=== PATIENT | female | born 1985 | race Two or more races ===

== ENCOUNTER 2020-05-27 11:05 | Inpatient (IN) | payer OTHER ==
[~2020-05-27] VITALS: Ht 165.1 cm; Wt 68.0 kg
[~2020-05-27 11:05] MED LIST: Colace 100MG PO; DERMOPLAST TP; DURICEF 500 MG CAPSULE PO; Hematron LIQ. PO; Motrin PO; PROCTOFOAM-HC 110 GM RC
[2020-06-20] MEDS ORDERED: FAMOTIDINE20 MG (11:25)
[2020-06-20] MEDS ORDERED: IBU400 MG PO (11:27)
[2020-06-20] MEDS ORDERED: DERMOPLAST FIRS78 GM (11:27)
[2020-06-20] MEDS ORDERED: COLACE100 MG PO (11:28)
[2020-06-20] MEDS ORDERED: DUI500 PO (11:35)
== END 2020-06-21 11:55 | DRG 807 ==
LOC: LDR 06-19 06:38 → OB/GYN 06-19 06:38 → LDR 06-19 15:31 → OB/GYN 06-19 19:29 → SURG-SUITE 06-20 10:53 → OB/GYN 06-24 11:30
PROVIDERS: ADMIT Obstetrics & Gynecology; ATTEND Obstetrics & Gynecology
PROC: 10E0XZZ Delivery of Products of Conception, External Approach (ICD-10-PCS; principal; 2020-06-19)
PROC: 0KQM0ZZ Repair Perineum Muscle, Open Approach (ICD-10-PCS; 2020-06-19)
PROC: 4A0HXFZ Measurement of Products of Conception, Cardiac Rhythm, External Approach (ICD-10-PCS; 2020-06-19)
DX: O70.1 Second degree perineal laceration during delivery (principal); Z37.0 Single live birth; Z3A.39 39 weeks gestation of pregnancy; Z20.828 Contact with and (suspected) exposure to other viral communicable diseases

== ENCOUNTER 2020-06-10 10:39 | Outpatient (CLI) | payer OTHER | END 2020-06-10 11:08 | disposition home or self-care (01) | LOC: NST 10:39 | PROVIDERS: ATTEND Obstetrics & Gynecology | DX: Z34.83 Encounter for supervision of other normal pregnancy, third trimester (principal) ==

== ENCOUNTER 2021-02-10 11:45 | Outpatient (CLI) | payer OTHER ==
[~2021-02-10 11:45] MED LIST changes: +COLACE100 MG PO; +DERMOPLAST FIRS78 GM; +DUI500 PO; +FAMOTIDINE20 MG; +IBU400 MG PO
== END 2021-02-10 11:50 | disposition home or self-care (01) ==
LOC: SONOGRAMA 11:45
PROVIDERS: ATTEND Pathology Anatomic Pathology & Clinical Pathology
DX: E04.2 Nontoxic multinodular goiter (principal)

== ENCOUNTER 2021-11-26 06:00 | Day surgery (SDC) | payer OTHER | END 2021-11-26 12:25 | disposition home or self-care (01) | LOC: CIR.AMB 06:00 | PROVIDERS: ATTEND Obstetrics & Gynecology Maternal & Fetal Medicine | DX: O02.1 Missed abortion (principal) ==

== ENCOUNTER 2023-03-04 08:23 | Outpatient (CLI) | payer OTHER | END 2023-03-04 08:29 | disposition home or self-care (01) | LOC: SONOGRAMA 08:23 | PROVIDERS: ATTEND Pathology Anatomic Pathology & Clinical Pathology | DX: D34 Benign neoplasm of thyroid gland (principal); E04.1 Nontoxic single thyroid nodule; E07.9 Disorder of thyroid, unspecified ==

== ENCOUNTER 2023-08-05 14:15 | Inpatient (IN) | payer OTHER ==
[~2023-08-05] VITALS: Ht 165.1 cm; Wt 70.8 kg
[2023-08-25] MEDS ORDERED: PRENATAL TABLE1 EAC1 PO (05:51)
[2023-08-25 07:09] LABS: HEMATOCRIT 34.7 % (36.0-45.00); HEMOGLOBIN 11.4 g/dL (12.0-15.00); MEAN CELL VOLUME 76.6 fL (80.00-100.00); MEAN CORPUSCULAR HEMOGLOBIN 25.1 pg (27.00-32.0); MEAN CORPUSCULAR HGB CONC 32.7 g/dl (32.0-36.0); PLATELET COUNT 159 K/uL (150-450); RED BLOOD COUNT 4.53 M/uL (4.00-6.00)
[2023-08-25 07:10] LABS: RED CELL DISTRIBUTION WIDTH 31.9 % (11.5-14.5)
[2023-08-25 07:25] LABS: INR < 0.93; PARTIAL THROMBOPLASTIN TIME 29.1 SECONDS (22.0-34.0); PROTHROMBIN TIME 9.5 SECONDS (9.0-11.5)
[2023-08-26 06:23] LABS: HEMATOCRIT 26.4 % (36.0-45.00); MEAN CELL VOLUME 78.1 fL (80.00-100.00); PLATELET COUNT 142 K/uL (150-450); RED BLOOD COUNT 3.38 M/uL (4.00-6.00)
[2023-08-26 06:37] LABS: MEAN CORPUSCULAR HEMOGLOBIN 25.7 pg (27.00-32.0)
[2023-08-26 06:38] LABS: HEMOGLOBIN 8.7 g/dL (12.0-15.00)
== END 2023-08-27 13:58 | disposition home or self-care (01) | DRG 807 ==
LOC: LDR 08-25 05:49 → OB/GYN 08-25 15:00
PROVIDERS: Obstetrics & Gynecology; Obstetrics & Gynecology Gynecology; ADMIT Obstetrics & Gynecology Maternal & Fetal Medicine; ATTEND Obstetrics & Gynecology Maternal & Fetal Medicine
PROC: 10E0XZZ Delivery of Products of Conception, External Approach (ICD-10-PCS; principal; 2023-08-25)
PROC: 0UQG7ZZ Repair Vagina, Via Natural or Artificial Opening (ICD-10-PCS; 2023-08-25)
PROC: 4A1HXCZ Monitoring of Products of Conception, Cardiac Rate, External Approach (ICD-10-PCS; 2023-08-25)
DX: O71.4 Obstetric high vaginal laceration alone (principal); O66.0 Obstructed labor due to shoulder dystocia; Z37.0 Single live birth; Z3A.39 39 weeks gestation of pregnancy; Z20.822 Contact with and (suspected) exposure to COVID-19

== ENCOUNTER 2023-08-20 08:31 | Outpatient (CLI) | payer OTHER | END 2023-08-20 09:31 | disposition home or self-care (01) | LOC: NST 08:31 | PROVIDERS: ATTEND Obstetrics & Gynecology | DX: Z34.83 Encounter for supervision of other normal pregnancy, third trimester (principal) ==

== ENCOUNTER 2025-04-10 07:22 | Outpatient (CLI) | payer OTHER ==
[~2025-04-10 07:22] MED LIST changes: +PRENATAL TABLE1 EAC1 PO
== END 2025-04-10 07:23 | disposition home or self-care (01) ==
LOC: NUCLEAR 07:22
DX: E05.10 Thyrotoxicosis with toxic single thyroid nodule without thyrotoxic crisis or storm (principal)
CPT/HCPCS: 78014; A9512

== ENCOUNTER 2025-04-11 07:16 | Outpatient (CLI) | payer OTHER | END 2025-04-11 07:17 | disposition home or self-care (01) | LOC: NUCLEAR 07:16 | DX: E05.10 Thyrotoxicosis with toxic single thyroid nodule without thyrotoxic crisis or storm (principal) | CPT/HCPCS: 78013; A9512 ==